=== PATIENT | male | born 1985 | race Two or more races ===

== ENCOUNTER 2024-11-30 15:58 | Emergency (ER) | payer BC, MEDICAID, SELFPAY ==
--- NOTE | 2024-11-30 15:59 | EKG_ITS ---
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
[2024-11-30 16:03] VITALS: BP 133/90; PULSE 113; RESP 24; TEMP 36.6; O2SAT 98
--- NOTE | 2024-11-30 16:24 | XR_ITS ---
Examination: PA chest single view TECHNIQUE: Upright PA chest single view Date and time: November 30, 2024, 1640 hours INDICATIONS: Shortness of breath chest pain beginning last night. FINDINGS: Normal heart size The lungs are clear. The osseous structures are intact IMPRESSION: No active disease
--- NOTE | 2024-11-30 16:24 | EKG_ITS ---
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
--- NOTE | 2024-11-30 16:25 | PD.EDRME ---
Rapid Medical Screening Exam RME Arrival date/time: 11/30/24 15:58 This is a case of 39-year-old male who came in in the emergency room due to chest pain palpitation and mild shortness of breath patient took alcohol last night and started to have symptoms worsening of the symptoms this patient decided to start consult here in the emergency room Chief Complaint: Chest Pain Time Seen by Provider: 11/30/24 16:24 Vital signs: Vital Signs Temperature 97.9 F 11/30/24 16:03 Pulse Rate 113 H 11/30/24 16:03 Respiratory Rate 24 H 11/30/24 16:03 Blood Pressure 133/90 H 11/30/24 16:03 Pulse Oximetry (%) 98 11/30/24 16:03 Oxygen Delivery Method Room Air 11/30/24 16:03
[2024-11-30 16:58] LABS: Basophils # (Auto) 0.1 Thou/mm3 (0.0-0.2); Basophils % (Auto) 1 % (0-2.5); Eosinophils # (Auto) 0.2 Thou/mm3 (0.0-0.5); Eosinophils % (Auto) 3 % (0-10); Hematocrit 44.9 % (41.0-53.0); Hemoglobin 15.3 g/dL (13.5-16.0); Immature Granulocytes % (Auto) 0 % (0-0); Immature Granulocytes Auto 0.03 Thou/mm3 (0.00-0.00); Lymphocytes # (Auto) 2.2 Thou/mm3 (1.0-4.8); Lymphocytes % (Auto) 26 % (10-50); Mean Corpuscular HGB Conc 34.1 g/dl (31.0-37.0); Mean Corpuscular Hemoglobin 30.9 pg (25.0-35.0); Mean Corpuscular Volume 91 fL (80-100); Monocytes # (Auto) 0.6 Thou/mm3 (0.0-0.8); Monocytes % (Auto) 7 % (0-12); Neutrophils # (Auto) 5.5 Thou/mm3 (1.8-7.7); Neutrophils % (Auto) 64 % (37-80); Nucleated Red Blood Cell % 0 /100 WBC (0); Platelet Count 292 Thou/mm3 (140-440); RDW Standard Deviation 44.3 fL (35.1-43.9); Red Blood Count 4.95 Miln/mm3 (4.50-5.90); White Blood Count 8.6 Thou/mm3 (3.8-10.6)
[2024-11-30 17:10] LABS: Alcohol, Urine Positive (Negative); Amphetamine/Methamp Scrn,U Negative (Negative); Barbiturate Screen,Urine Negative (Negative); Benzodiazepines Screen,Urine Negative (Negative); Benzoylecgonine Screen, Ur Negative (Negative); Fentanyl Screen,Urine Negative (Negative); Opiate Screen,Urine Negative (Negative); THC Screen,Urine Negative (Negative)
[2024-11-30 17:10] LABS: Alanine Aminotransferase 23 U/L (10-49); Albumin, Serum 4.6 gm/dL (3.5-5.0); Albumin/Globulin Ratio 1.6 (1.2-2.2); Alkaline Phosphatase 112 U/L (46-116); Anion Gap 6 (7-16); Aspartate Amino Transferase 27 U/L (0-34); BUN/Creatinine Ratio 8 Ratio (12-20); Blood Urea Nitrogen 8 mg/dL (9-23); Calcium 8.8 mg/dL (8.3-10.6); Calcium (Corrected) 8.8 mg/dL (8.5-10.1); Carbon Dioxide 25.8 mMol/L (20.0-31.0); Chloride 111 mMol/L (98-107); Globulin 2.9 gm/dL (2.3-3.5); Glucose 103 mg/dL (74-106); Osmolality,Calculated 283 (275-295); Potassium 3.8 mMol/L (3.4-5.1); Sodium 143 mMol/L (136-145); Total Protein 7.5 gm/dL (5.7-8.2); Troponin I < 0.020 ng/mL (0.0-0.045); eGFR > 60 See Note
[2024-11-30 18:16] LABS: B-Type Natriuretic Peptide < 20 pg/mL (0-100)
--- NOTE | 2024-11-30 19:26 | PD.EDCHEST ---
ED Chest Pain RME/HPI General Chief Complaint: Chest Pain Stated Complaint: CHEST PAIN Time Seen by Provider: 11/30/24 16:24 Arrival date/time: 11/30/24 15:58 RME / HPI RME / HPI narrative: 11/30/24 15:58 This is a case of 39-year-old male who came in in the emergency room due to chest pain palpitation and mild shortness of breath patient took alcohol last night and started to have symptoms worsening of the symptoms this patient decided to start consult here in the emergency room -------- Dr. Maria?s Main ED Evaluation: Related Data Home Medications ?Medication ?Instructions ?Recorded ?Confirmed Oxycodone Hcl/Acetaminophen 1 tab PO PRN PRN PAIN ##90 09/02/15 (Oxycodon Hcl-Apap 10/325 Mg Tb) Previous Rx's ?Medication ?Instructions ?Recorded Hydrocodone/Acetaminophen * (NORCO 1 tab PO Q6H PRN ABDOMINAL PAIN 09/02/15 10/325 *) #40 tabs chlordiazepoxide HCl 25 mg capsule 25 mg PO BID #20 caps 10/30/23 ondansetron 4 mg disintegrating 4 mg PO Q8H #20 tabs 10/30/23 tablet Allergies Allergy/AdvReac Type Severity Reaction Status Date / Time lactose Allergy Mild UPSET GI Verified 11/30/24 16:04 Review of Systems Review of Systems Systems Reviewed: All systems reviewed, normal except as documented ED Exam Narrative Physical exam: GEN. APPEARANCE: The patient is alert awake oriented X-3 in no distress, lying down comfortably, does not look ill/toxic. Patient has good eye contact. Patient is cooperative. VITALS: All vitals were reviewed and the pulse ox is 98% on room air which is normal according to my interpretation. HEENT: Normocephalic, atraumatic. Pupils are equal and reactive. Oral mucosa is moist. Patent Nares NECK: Supple, nontender, no thyromegaly, no meningismus, no JVD CHEST: Symmetrical, atraumatic, and with equal expansion , Nontender on palpation no deformity and no crepitus. CARDIOVASCULAR: Heart regular rhythm no murmur or gallop rub or extra beats. LUNGS: Clear to auscultation bilaterally with symmetrical chest rise. No laboring tachypnea or wheezing. No intercostal subcostal retraction. No rales and no rhonchi. ABDOMEN: Soft, flat, nontender to palpation, no guarding or rebound tenderness. There are no abnormal masses palpated. Active and normal bowel sounds. EXTREMITIES: Nontender. No edema. No cyanosis. Patient is able to move all 4 extremities well, with full ROM and good CSM. SKIN: Warm and dry, no jaundice or rashes noted. NEURO: Patient is JAMIL x 4, Cranial nerves II through XII grossly intact. There is no focal neurologic deficits noted. GCS is 15, PNS and EVS TECH appear grossly intact. PSYCHIATRIC: Patient is in normal mood and affect. Course Course Course Narrative: CXR is ordered for determining the etiology of chest pain. Quality Measures none Orders Category Date Time Status EKG (ED ONLY) *Do not use* NOW Care 11/30/24 15:59 Completed EKG (ED ONLY) *Do not use* NOW Care 11/30/24 16:25 Active EKG (ED Only) Stat Exams 11/30/24 15:59 Draft EKG (ED Only) Stat Exams 11/30/24 16:24 Ordered XR chest 1V portable Stat Exams 11/30/24 16:24 Completed Alcohol, Urine Stat Lab 11/30/24 16:17 Completed BNP [B-Type Natriuretic Peptide] Stat Lab 11/30/24 16:43 Completed CBC Stat Lab 11/30/24 16:43 Completed CMP [Comprehensive Metabolic Panel] Stat Lab 11/30/24 16:43 Completed Drug Screen,Urine Stat Lab 11/30/24 16:17 Completed Troponin I Stat Lab 11/30/24 16:43 Completed Vital Signs Vital signs: Vital Signs Temperature 97.9 F 11/30/24 16:03 Pulse Rate 113 H 11/30/24 16:03 Respiratory Rate 24 H 11/30/24 16:03 Blood Pressure 133/90 H 11/30/24 16:03 Pulse Oximetry (%) 98 11/30/24 16:03 Oxygen Delivery Method Room Air 11/30/24 16:03 Chest Pain MDM Narrative MDM Narrative:: Scribe Attestation: 11/30/24 - Karina Pratt am scribing for and in the presence of Dr. Maria. Patient data External records reviewed:: [facility] previous records (Per chart review, patient was seen here on 10/30/23 for alcohol withdrawal.) Discharge Plan Prescriptions/Referrals Prescriptions/Med Rec: No Action Oxycodone Hcl/Acetaminophen (Oxycodon Hcl-Apap 10/325 Mg Tb) 1 UDTAB tablet 1 tab PO PRN PRN (Reason: PAIN) Qty: 90 Hydrocodone/Acetaminophen * (NORCO 10/325 *) 1 TAB tablet 1 tab PO Q6H PRN (Reason: ABDOMINAL PAIN) Qty: 40 0RF chlordiazepoxide HCl 25 mg capsule 25 mg PO BID Qty: 20 0RF ondansetron 4 mg tablet,disintegrating 4 mg PO Q8H Qty: 20 0RF Referrals: No Primary/Family,Physician [Primary Care Provider] - In 1 week Patient/Caregiver Discharge Instructions Print Language: Faroese
[2024-11-30 21:02] VITALS: BP 134/85; PULSE 89; RESP 16; TEMP 36.9; O2SAT 97
[2024-11-30 23:03] LABS: Troponin I < 0.002 ng/mL (0.0-0.045)
[2024-12-01 01:09] VITALS: PULSE 77; RESP 19; TEMP 36.3; O2SAT 99
--- NOTE | 2024-12-01 01:12 | PD.EDCHEST ---
ED Chest Pain RME/HPI General Chief Complaint: Chest Pain Stated Complaint: CHEST PAIN Time Seen by Provider: 11/30/24 16:24 Arrival date/time: 11/30/24 15:58 RME / HPI RME / HPI narrative: 11/30/24 15:58 This is a case of 39-year-old male who came in in the emergency room due to chest pain palpitation and mild shortness of breath patient took alcohol last night and started to have symptoms worsening of the symptoms this patient decided to start consult here in the emergency room -------- Dr. Maria?s Main ED Evaluation: 39yo male presents to the ED for a chief complaint of chest pressure. Patient states he's been binge drinking hard liquor for the last 3 days, reporting he's had chest pressure and palpitations today. Patient denies any N/V/D, hemoptysis, cough, fever, chills, hematemesis, hematochezia, melena or any other associated symptoms. Patient does vape. Denies any recent travel. Related Data Home Medications ?Medication ?Instructions ?Recorded ?Confirmed Oxycodone Hcl/Acetaminophen 1 tab PO PRN PRN PAIN ##90 09/02/15 (Oxycodon Hcl-Apap 10/325 Mg Tb) Previous Rx's ?Medication ?Instructions ?Recorded Hydrocodone/Acetaminophen * (NORCO 1 tab PO Q6H PRN ABDOMINAL PAIN 09/02/15 10/325 *) #40 tabs chlordiazepoxide HCl 25 mg capsule 25 mg PO BID #20 caps 10/30/23 ondansetron 4 mg disintegrating 4 mg PO Q8H #20 tabs 10/30/23 tablet Allergies Allergy/AdvReac Type Severity Reaction Status Date / Time lactose Allergy Mild UPSET GI Verified 11/30/24 16:04 Review of Systems Review of Systems Systems Reviewed: All systems reviewed, normal except as documented ED Exam Narrative Physical exam: GEN. APPEARANCE: The patient is alert awake oriented X-3 in no distress, lying down comfortably, does not look ill/toxic. Patient has good eye contact. Patient is cooperative. VITALS: All vitals were reviewed and the pulse ox is 99% on room air which is normal according to my interpretation. HEENT: Normocephalic, atraumatic. Pupils are equal and reactive. Oral mucosa is moist. Patent Nares NECK: Supple, nontender, no thyromegaly, no meningismus, no JVD CHEST: Symmetrical, atraumatic, and with equal expansion , Nontender on palpation no deformity and no crepitus. CARDIOVASCULAR: Heart regular rhythm no murmur or gallop rub or extra beats. LUNGS: Clear to auscultation bilaterally with symmetrical chest rise. No laboring tachypnea or wheezing. No intercostal subcostal retraction. No rales and no rhonchi. ABDOMEN: Soft, flat, nontender to palpation, no guarding or rebound tenderness. There are no abnormal masses palpated. Active and normal bowel sounds. EXTREMITIES: Nontender. No edema. No cyanosis. Patient is able to move all 4 extremities well, with full ROM and good CSM. SKIN: Warm and dry, no jaundice or rashes noted. NEURO: Patient is JAMIL x 4, Cranial nerves II through XII grossly intact. There is no focal neurologic deficits noted. GCS is 15, PNS and SAFETY AND SECURITY OFFICER appear grossly intact. PSYCHIATRIC: Patient is in normal mood and affect. Course Course Course Narrative: CXR is ordered for determining the etiology of chest pain. Quality Measures none Orders Category Date Time Status EKG (ED ONLY) *Do not use* NOW Care 11/30/24 15:59 Completed EKG (ED ONLY) *Do not use* NOW Care 11/30/24 16:25 Completed EKG (ED Only) Stat Exams 11/30/24 15:59 Draft EKG (ED Only) Stat Exams 11/30/24 16:24 Ordered XR chest 1V portable Stat Exams 11/30/24 16:24 Completed Alcohol, Urine Stat Lab 11/30/24 16:17 Completed BNP [B-Type Natriuretic Peptide] Stat Lab 11/30/24 16:43 Completed CBC Stat Lab 11/30/24 16:43 Completed CMP [Comprehensive Metabolic Panel] Stat Lab 11/30/24 16:43 Completed Drug Screen,Urine Stat Lab 11/30/24 16:17 Completed Troponin I Stat Lab 11/30/24 16:43 Completed Troponin I Stat Lab 11/30/24 21:50 Completed Vital Signs Vital signs: Vital Signs Temperature 97.9 F 11/30/24 16:03 Pulse Rate 113 H 11/30/24 16:03 Respiratory Rate 24 H 11/30/24 16:03 Blood Pressure 133/90 H 11/30/24 16:03 Pulse Oximetry (%) 98 11/30/24 16:03 Oxygen Delivery Method Room Air 11/30/24 16:03 PROCEDURES: Smoking Cessation Time Spent Discussing Smoking Cessation w/Patient (min): 5 Patient Acknowledges Need for Cessation: Yes Additional Comments: The patient was counseled as to the multiple risks to their health from continued use of tobacco products. It was explained that continuing to smoke may lead to multiple short and director long term care negative health consequences, including but not limited to mouth/esophageal/lung cancer, COPD, and heart disease. The patient states she/he understands these risks and also understands the options and resources available to them to help them stop smoking. Nicotine replacement therapy, local hotlines, and local resources were discussed as viable options for helping them stop their tobacco use. The total time spent counseling the patient regarding tobacco cessation was 5 minutes. Chest Pain MDM Narrative MDM Narrative:: Scribe Attestation: 12/01/24 - Karina Pratt am scribing for and in the presence of Dr. Maria. Patient presents with chest pain. Vital signs and exam as listed. Concern for ACS arrhythmia electrolyte abnormality viral syndrome among others. Ordered labs EKG chest x-ray offered medication for symptom relief. Labs without acute hematologic or metabolic abnormality. Troponin not elevated on 2 different assessments. Chest x-ray unremarkable. EKG with evidence of tachycardia however on repeat assessment, vital signs now within normal limits. On reevaluation symptoms resolved. Will discharge home with close return precautions follow-up with his primary care doctor. Also advised patient to seek resources for sobriety from alcohol as well as vaping. Patient data External records reviewed:: [facility] previous records (Per chart review, patient was seen here on 10/30/23 for alcohol withdrawal.) Clinical information provided by:: patient Social determinants that could affect healthcare access:: substance use (tobacco and alcohol use) Patient has the following chronic illnesses:: none How is presenting disease/condition affected by chronic disease/condition?: no chronic disease Evaluation data The following diagnostics were reviewed and interpreted by me:: lab results, radiology exam(s) and EKG tracing(s) Lab and/or radiology exams considered but not ordered:: none Interpretation Summary: CBC normal, CMP normal, Initial and Repeat Troponins normal, BNP normal, UDS negative, Urine Alcohol negative. EKG done at 1600, sinus tachycardia, rate of 118, normal intervals, nonspecific ST-T changes, no acute ischemia, according to my interpretation. [facility] Report Signed Patient: SHILPA ZAZUETA [facility]. Record#: [id number] Birthdate: 1985 Age/Sex: 39 / M Location: [facility] Attending Dr: Ordering Physician: Hanna Pal Date of Service: 11/30/24 Procedure(s): XR chest 1V portable Accession Number(s): [id number] cc: Pastor Kaplan MD; NO PRIMARY/FAMILY,PHYSICIAN; Hanna Pal~ Examination: PA chest single view TECHNIQUE: Upright PA chest single view Date and time: November 30, 2024, 1640 hours INDICATIONS: Shortness of breath chest pain beginning last night. FINDINGS: Normal heart size The lungs are clear. The osseous structures are intact IMPRESSION: No active disease Dictated By: Pastor Kaplan MD Signed By: <Electronically signed by Pastor Kaplan MD in OV> 11/30/24 5813 Medications / Prescriptions Medications or Prescriptions considered but not ordered:: none Medication administrations:: none Consultations Consultation(s) initiated? (list below): No Diagnosis Chest Pain Differential Diagnosis: chest pain and other (ACS, arrhythmia, pneumonia, metabolic disturbance) Most likely diagnosis given after review of the tests above:: see clinical impression below Admission Indicated Admission indicated?: not indicated Admission Request Was there a request for admission?: No Disposition Plan Disposition Plan: Discharge Discharge Attestation Discharge Attestation: The patient and all family members were given an opportunity to ask questions and understood the discharge instructions. Discharge instructions specifically effects, indications for sooner follow up or return to the emergency department, and the expected course of current diagnosis. Patient condition: Stable Discharge Plan Plan Patient Disposition: HOME (Self Care) Prescriptions/Referrals Prescriptions/Med Rec: No Action Oxycodone Hcl/Acetaminophen (Oxycodon Hcl-Apap 10/325 Mg Tb) 1 UDTAB tablet 1 tab PO PRN PRN (Reason: PAIN) Qty: 90 Hydrocodone/Acetaminophen * (NORCO 10/325 *) 1 TAB tablet 1 tab PO Q6H PRN (Reason: ABDOMINAL PAIN) Qty: 40 0RF chlordiazepoxide HCl 25 mg capsule 25 mg PO BID Qty: 20 0RF ondansetron 4 mg tablet,disintegrating 4 mg PO Q8H Qty: 20 0RF Referrals: No Primary/Family,Physician [Primary Care Provider] - In 1 week Problem List Clinical Impression: Chest pain Patient/Caregiver Discharge Instructions Education Materials: ED Chest Pain, Uncertain Cause Additional Instructions: Please return to the emergency department if you have new symptoms or symptoms or concern. I recommend that you seek resources for sobriety from alcohol at vaping and smoking. Print Language: Croatian Stand Alone Forms: Verena Award Info., Patient Portal Info Letter
[2024-12-01 01:14] VITALS: BP 124/78
== END 2024-12-01 01:30 | disposition home or self-care (01) ==
PROVIDERS: Nurse Practitioner Family; Emergency Provider Emergency Medicine
DX: R07.9 Chest pain, unspecified (principal); R94.31 Abnormal electrocardiogram [ECG] [EKG]
CPT/HCPCS: 36415; 71045; 80053; 80307; 80320; 83880; 84484; 85025; 93005; 99283; G0480